=== PATIENT | male | born 1995 | race Caucasian/White ===

== ENCOUNTER 2018-06-24 18:50 | Emergency (ER) | payer OTHER ==
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
[2018-06-24] MEDS ORDERED: HYDROcod/ACET 5/325 Prepack 4 PO STA (21:35)
[2018-06-24 21:40] VITALS: BP 145/100
== END 2018-06-24 21:53 | disposition home or self-care (01) ==
LOC: ED 18:50
DX: S16.1XXA Strain of muscle, fascia and tendon at neck level, initial encounter (principal); S39.012A Strain of muscle, fascia and tendon of lower back, initial encounter; V23.4XXA Motorcycle driver injured in collision with car, pick-up truck or van in traffic accident, initial encounter
CPT/HCPCS: 72100; 72125; 99283

== ENCOUNTER 2024-03-21 07:03 | Outpatient (CLI) | payer OTHER ==
--- NOTE | 2024-03-21 22:41 | MRI Report ---
PROCEDURE: Knee LT WO INDICATIONS: L KNEE PAIN TECHNIQUE: Noncontrast sagittal PD fast spin echo and T2 fast spin echo with fat saturation, sagittal 3-D gradie nt sequence with fat saturation; coronal T1 spin echo and PD fast spin echo with fat saturation, and axial PD fast spin echo with fat saturation through the knee. COMPARISON: None. FINDINGS: Image quality: Excellent. Menisci: The medial and lateral menisci demonstrate normal morphology and internal signal. The meni scal root ligaments appear intact. Cruciate ligaments: The anterior and posterior cruciate ligaments appear intact. Medial structures: The medial collateral ligament appears intact. Visualized portions of the pes ans erinus tendons appear normal. No abnormal bursal fluid. Lateral structures: The lateral collateral ligament, long and short heads of the biceps femoris tend on appear intact. The popliteus tendon appears normal. Iliotibial band appears normal. Anterior structures: The quadriceps and patellar tendons appear intact. Sprain/low-grade partial-thi ckness tear involving lateral patellofemoral ligament at its patella insertion is seen. Patellar alig nment is normal. No femoral trochlear dysplasia or ventral trochlear prominence. No edema in the in frapatellar fat pad. Bones and cartilage: No bone marrow contusions or fractures. The cartilage of the medial and lateral femoral tibial compartments is normal in thickness. Low to moderate grade chondromalacia patella inv olving lateral facet of patella cartilage near apex is seen. Joint space: There is small knee joint fluid. No Minor's cyst. Normal appearing synovial plicae ar e incidentally noted. IMPRESSION: 1. 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 No marrow edema. No fracture or dislocation. Low-grade partial-thickness tear/sprain involving lat eral patellofemoral ligament at its patella insertion. No significant patellar subluxation. 2. No evidence of focal meniscal tear. 3. The cruciate ligaments are intact. Reviewed by: Clayton Bedoya MD on 03/21/2024 10:40 PM PDT Approved by: Clayton Bedoya MD on 03/21/2024 10:40 PM PDT Station ID: [id number]
== END 2024-03-21 07:04 | disposition home or self-care (01) ==
LOC: DI 07:03
PROVIDERS: ATTEND Family Medicine
DX: M22.42 Chondromalacia patellae, left knee (principal); S76.112A Strain of left quadriceps muscle, fascia and tendon, initial encounter